=== PATIENT | male | born 1935 | race Caucasian/White ===

== ENCOUNTER → 2019-09-16 | Outpatient (CLI) | payer MEDICARE, OTHER | END | disposition home or self-care (01) | LOC: LABWHC1 11:19 | PROVIDERS: ATTEND Internal Medicine Endocrinology, Diabetes & Metabolism | DX: E03.8 Other specified hypothyroidism (principal) | CPT/HCPCS: 36415; 84443 ==

== ENCOUNTER → 2021-06-21 | Outpatient (CLI) | payer MEDICARE, OTHER ==
--- NOTE | 2021-06-21 13:18 | CT ---
EXAMINATION TYPE: CT brain wo con DATE OF EXAM: 06/21/2021 COMPARISON: 06/06/2013 HISTORY: Syncope CT DLP: 995.50 mGycm Automated exposure control for dose reduction was used. FINDINGS: Moderate generalized degenerative change. Nonspecific low attenuation in the white matter bilaterally . No midline shift or mass effect. No acute hemorrhage Calvarium intact. Orbits are symmetric. Nasal septal deviation noted. Sella turcica has a normal appe arance. Craniocervical junction maintained. 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
== END | disposition home or self-care (01) ==
LOC: RADCTMAIN 11:27
PROVIDERS: ATTEND Internal Medicine Geriatric Medicine
DX: G31.89 Other specified degenerative diseases of nervous system (principal); R55 Syncope and collapse
CPT/HCPCS: 70450

== ENCOUNTER → 2021-07-04 | Outpatient (CLI) | payer MEDICARE, OTHER ==
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
== END | disposition home or self-care (01) ==
LOC: NEUROMAIN 08:01
PROVIDERS: ATTEND Internal Medicine Geriatric Medicine
DX: R55 Syncope and collapse (principal); R94.31 Abnormal electrocardiogram [ECG] [EKG]
CPT/HCPCS: 95816

== ENCOUNTER → 2021-08-14 | Outpatient (CLI) | payer MEDICARE, OTHER ==
--- NOTE | 2021-08-14 11:12 | MR ---
EXAMINATION TYPE: MR brain wo/w con DATE OF EXAM: 08/14/2021 COMPARISON: CT brain 06/21/2021 HISTORY: Abnormal EEG TECHNIQUE: Multiplanar, multisequence images of the brain and brainstem is performed without and with IV contras t, utilizing 7.5 mL intravenous Gadavist . FINDINGS: Diffusion weighted images demonstrate no evidence of a recent infarct or other diffusion ab normality. There is no extra-axial fluid collection. Extensive confluent and scattered hyperintensit ies are present on inversion recovery and T2-weighted sequences within the pericallosal, periventricu lar, subcortical white matter. Some focal encephalomalacia present along the anterior limb of the int ernal capsule on the left, right cerebellar hemisphere as noted on CT. Some encephalomalacia is also noted within the left occipital lobe with some adjacent gliosis. The ventricular system and cisternal spaces are normal in size and appearance. The brain volume is age appropriate, cortical atrophy is again noted. Midline structures demonstrate normal morphology. The craniocervical junction appears within normal limits. Post contrast images demonstrate no abnormal enhancement. The dural venous sinuses appear pa tent. The visualized sinuses are clear and the globes are intact. IMPRESSION: Age-related atrophy, chronic small vessel ischemic changes
== END | disposition home or self-care (01) ==
LOC: RADMRIMAIN 08:01
PROVIDERS: ATTEND Internal Medicine Geriatric Medicine
DX: G31.9 Degenerative disease of nervous system, unspecified (principal); R94.01 Abnormal electroencephalogram [EEG]
CPT/HCPCS: 70553; A9585

== ENCOUNTER → 2022-10-27 | Outpatient (CLI) | payer MEDICARE, OTHER ==
--- NOTE | 2022-10-27 13:51 | MR ---
EXAMINATION TYPE: MR lumbar spine wo con DATE OF EXAM: 10/27/2022 COMPARISON: Outside lumbar spine x-ray October 23, 2022 HISTORY: Low back pain for 2 years and spinal stenosis per order TECHNIQUE: Multiplanar, multisequence imaging of the lumbar spine is performed without IV contrast. FINDINGS: There is levoconvex scoliosis centered at L2-L3 level. There is grade 1 anterolisthesis L3 on L4. Sagittal images of the lumbar spine show vertebral body heights to appear satisfactory. Multil evel disc desiccation is seen. There is moderate disc space narrowing at L1-L2 and L2-L3 levels. Ther e is mild to moderate disc space narrowing at the right L3-L4 level and the right L4-L5 levels. Moder ate disc space narrowing L5-S1 level with heterogeneous motor type II endplate changes and moderate a nterior spurring. Additional moderate anterior spurring L4-L5 level. Modic type II endplate changes p osterior L2-L3 level also noted. The conus medullaris is normal in position and signal ending superio r L1 level. Axial images at T12-L1 level appear within normal limits. Axial images at L1-L2 level show mild broad-based posterior disc protrusion minimally effacing the an terior thecal sac. There is mild to moderate right greater than left facet arthropathy effacing right posterior lateral thecal sac. Bilateral neural foramina are patent. Axial images at L2-L3 level show posterior spur disc complex effacing the anterior thecal sac along w ith moderate facet arthropathy with ligamentum flavum hypertrophy producing posterior lateral thecal sac. There is mild bilateral anterior inferior neural foraminal narrowing noted. Axial images at L3-L4 level show moderate broad-based posterior disc protrusion effacing the anterior thecal sac. There is moderate facet arthropathy and ligamentum flavum hypertrophy effacing the poste rolateral thecal sac bilaterally. There is [id number] bilateral neural foraminal narrowing seen . Axial images at L4-L5 level show mild facet arthropathy bilaterally. There is [id number] broad disc bulge with left lateral disc protrusion component. There is minimal effacement of the anterior t hecal sac. There is mild bilateral neural foraminal narrowing. Axial images at L5-S1 level moderate facet arthropathy bilaterally. There is posterior spur disc comp fany. Spinal canal is grossly preserved. There is mild right and more moderate to severe left-sided ne ural foraminal narrowing encroaching on the left L5 nerve sagittal image 4 and axial image 4 due to l eft foraminal lateral disc protrusion component. There are thin-walled cysts from both kidneys larger on the right kidney measures 4.8 cm long axis ax ial image 12. IMPRESSION: Scoliosis with multilevel degenerative changes as detailed above. L3-L4 spondylolisthesis is present.
== END | disposition home or self-care (01) ==
LOC: RADMRIMAIN 12:59
PROVIDERS: ATTEND Nurse Practitioner Family
DX: M47.816 Spondylosis without myelopathy or radiculopathy, lumbar region (principal); M43.16 Spondylolisthesis, lumbar region; M48.061 Spinal stenosis, lumbar region without neurogenic claudication; M41.86 Other forms of scoliosis, lumbar region
CPT/HCPCS: 72148

== ENCOUNTER 2023-06-12 12:02 | Day surgery (SDC) | payer MEDICARE, OTHER ==
[2023-06-10 12:19] VITALS: BMI 21.4
[2023-06-12] MEDS ORDERED: LIDOCAINE 1% (10MG/ML) FOR IV START INTRADERMA PRN (12:37)
[2023-06-12] MEDS ORDERED: LACTATED RINGERS 1,000 ML IV SCH (12:37)
[2023-06-12 12:53] VITALS: TEMP 97.1
[2023-06-12] MEDS ORDERED: PROPOFOL 10 MG/ML 20 ML VIAL IV ONE (14:02)
--- NOTE | 2023-06-12 14:20 | P.PCN ---
Date of Procedure: 06/12/23 Procedure(s) Performed: BRIEF HISTORY: Patient is a 87-year-old, pleasant, white male scheduled for an upper endoscopy as a part of evaluation of intermittent dysphagia to solids. He was diagnosed with proximal; esophageal In the past for [place] with EGD with dilation in 2019. Lately has been having worsening symptoms and hence scheduled for repeat EGD with dilation. PROCEDURE PERFORMED: Esophagogastroduodenoscopy with dilation. PREOPERATIVE DIAGNOSIS: Dysphagia to solids. IV sedation per anesthesia. PROCEDURE: After informed consent was obtained, the patient was brought into the endoscopy unit. IV sedation was administered by Anesthesia under continuous monitoring. Initially the Olympus GIF-140 video endoscope was inserted into the mouth. Esophagus intubated without any difficulty. In the proximal right esophagus there was a circumferential esophageal web identified and with gentle pressure I was able to advance the scope into the distal esophagus. It was gradually advanced into the stomach and duodenum and carefully examined. The bulb and the second part of the duodenum appeared normal. The scope at this time was withdrawn to the stomach, adequately insufflated with air, and upon careful examination, mucosa of the antrum, body, cardia and the fundus appeared normal. The scope was then withdrawn into the esophagus. The GE junction was located at 39 cm from the incisors. Small hiatal hernia noted. The esophagus appeared normal. There were no erosions or ulcerations seen. In the proximal cervical esophagus at 18 cm from the incisors there was a circumferential esophageal web identified and this was dilated using 10-12 mm TTS balloon in a sequential fashion for 30 seconds and the patient tolerated the procedure well. IMPRESSION: 1. 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 2. Small hiatal hernia. RECOMMENDATIONS: The findings of this examination were discussed with the patient [].
[2023-06-12] MEDS ORDERED: IV FLUID CONTINUATION 600 ML IV ONE (14:31)
[2023-06-12 14:52] VITALS: PULSE 67; RESP 18
[2023-06-12 14:53] VITALS: BP 103/58
== END 2023-06-12 15:16 | disposition home or self-care (01) ==
LOC: ORWHC2ENDO 12:02
PROVIDERS: ATTEND Internal Medicine Gastroenterology
DX: I85.00 Esophageal varices without bleeding (principal); K44.9 Diaphragmatic hernia without obstruction or gangrene; E07.9 Disorder of thyroid, unspecified; J45.909 Unspecified asthma, uncomplicated; M19.90 Unspecified osteoarthritis, unspecified site; G40.909 Epilepsy, unspecified, not intractable, without status epilepticus; Z88.5 Allergy status to narcotic agent; Z79.51 Long term (current) use of inhaled steroids; Z79.890 Hormone replacement therapy; Z79.899 Other long term (current) drug therapy
CPT/HCPCS: 43249; J2704; C1726